=== PATIENT | female | born 1945 | race Caucasian/White ===

== ENCOUNTER → 2022-01-25 | Outpatient (CLI) | payer OTHER ==
[2022-01-25 13:50] LABS: HEMOGLOBIN 13.9 g/dl (12.0-15.5); MEAN CORPUSCULAR HEMOGLOBIN 31.7 pg (27.0-33.0); MEAN CORPUSCULAR HGB CONC 32.3 g/dl (32.0-36.5); MEAN CORPUSCULAR VOLUME 98.2 fl (80.0-96.0); PLATELET COUNT, AUTOMATED 212 10^3/uL (150-450); RED BLOOD COUNT 4.38 10^6/uL (4.00-5.40); WHITE BLOOD COUNT 5.5 10^3/uL (4.0-10.0)
[2022-01-25 14:11] LABS: ALBUMIN 3.7 GM/DL (3.2-5.2); ALT/SGPT 26 U/L (12-78); BILIRUBIN,TOTAL 0.6 MG/DL (0.2-1.0); BLOOD UREA NITROGEN 12 MG/DL (7-18); CALCIUM LEVEL 9.4 MG/DL (8.8-10.2); CARBON DIOXIDE LEVEL 28 MEQ/L (21-32); CHLORIDE LEVEL 106 MEQ/L (98-107); CHOLESTEROL LEVEL 194 MG/DL (<200); CHOLESTEROL RISK RATIO 2.552 (<5); CREATININE FOR GFR 0.69 MG/DL (0.55-1.30); GLOMERULAR FILTRATION RATE > 60.0 (>39); GLUCOSE, FASTING 120 MG/DL (70-100); HDL CHOLESTEROL 76 MG/DL (>40); LDL CHOLESTEROL 104 MG/DL (<100); NON-HDL-C 118 MG/DL; POTASSIUM SERUM 4.6 MEQ/L (3.5-5.1); SODIUM LEVEL 139 MEQ/L (136-145); TOTAL PROTEIN 6.9 GM/DL (6.4-8.2); TRIGLYCERIDES LEVEL 71 MG/DL (<150)
[2022-01-25 14:20] LABS: HEMOGLOBIN A1c 5.5 %
[2022-01-25 14:41] LABS: VITAMIN B12 LEVEL 680 PG/ML (247-911)
[2022-01-25 14:57] LABS: TOTAL 25(OH) VITAMIN D 48.2 NG/ML (30.0-100.0)
== END ==
LOC: M PLALAB 10:57
PROVIDERS: ATTEND Physician Assistant Medical
DX: E78.2 Mixed hyperlipidemia (principal); D89.89 Other specified disorders involving the immune mechanism, not elsewhere classified; D64.89 Other specified anemias; E55.9 Vitamin D deficiency, unspecified; D51.8 Other vitamin B12 deficiency anemias; E03.4 Atrophy of thyroid (acquired); E11.9 Type 2 diabetes mellitus without complications

== ENCOUNTER → 2023-12-13 | Outpatient (CLI) | payer OTHER | LOC: M WUC 12:56 | PROVIDERS: ATTEND Physician Assistant | DX: M19.011 Primary osteoarthritis, right shoulder (principal); M25.511 Pain in right shoulder ==